=== PATIENT | female | born 1965 ===

== ENCOUNTER 2019-03-30 01:45 | Emergency (ER) | payer SELFPAY ==
[2019-03-30 02:33] LABS: Basophils # (Auto) 0.1 K/mm3 (0.0-0.1); Basophils % (Auto) 0.6 % (0.0-1.8); Eosinophils % (Auto) 0.2 % (0.0-4.3); Hematocrit 39.8 % (30.3-42.9); Hemoglobin 13.5 gm/dl (10.1-14.3); Lymphocytes # (Auto) 2.2 K/mm3 (1.2-5.4); Lymphocytes % (Auto) 20.1 % (13.4-35.0); Mean Corpuscular HGB Conc 34 % (30-34); Mean Corpuscular Volume 90 fl (79-97); Monocytes # (Auto) 0.9 K/mm3 (0.0-0.8); Monocytes % (Auto) 8.8 % (0.0-7.3); Platelet Count 168 K/mm3 (140-440); Red Blood Count 4.45 M/mm3 (3.65-5.03); Red Cell Distribution Width 14.2 % (13.2-15.2)
[2019-03-30 02:56] LABS: Albumin 3.5 g/dL (3.9-5); BUN/Creatinine Ratio 13; Blood Urea Nitrogen 9 mg/dL (7-17); Hemolysis Index 143
[2019-03-30 03:41] LABS: Alanine Aminotransferase 68 units/L (7-56)
[2019-03-30] MEDS ORDERED: NACL 0.9% 1000 ML 1,000 ML IV ONE (04:00)
[2019-03-30] MEDS ORDERED: TORADOL IV ONE (04:00)
[2019-03-30] MEDS ORDERED: ZOFRAN IV ONE (04:00)
[2019-03-30] MEDS ORDERED: NORCO 5/325 PO ONE (04:01)
[2019-03-30 05:01] LABS: Bacteria,Urine 4+ /HPF (Negative); Bilirubin,Urine NEG (Negative); Blood,Urine SM (Negative); Color,Urine Yellow (Yellow); Mucus,Urine FEW /HPF
[2019-03-30 05:06] LABS: WBC,Urine > 182.0 /HPF (0.0-6.0)
[2019-03-30] MEDS ORDERED: ROCEPHIN/NS 1 GM/50 ML 1 GM/50 ML BAG IV ONE (05:18)
--- NOTE | 2019-03-30 06:24 | Emergency Department Report ---
ED Abdominal Pain HPI - General Chief Complaint: Abdominal Pain Stated Complaint: FEVER/FLANK PAIN Source: patient, EMS Mode of arrival: Wheelchair Limitations: No Limitations - History of Present Illness Initial Comments: Patient is a 53 yo AA female with a h/o HTN who presents to the ED with c/o acute onset persistent severe left flank pain with dysuria, urinary urgency and frequency and low back pain with nausea x 3 days. Patient states that the symptoms became more worse in the last 12 hours with fever and chills, low appetite and worsening nausea. Patient denies dizziness, vaginal bleeding, vaginal discharge, chest pain, dyspnea, sore throat and headache or vision ch anges, and cough. MD Complaint: abdominal pain, flank pain (left flank pain), other (dysuria, urinary frequency and urgency; low back pain) -: Sudden, days(s) (4) Location: suprapubic, L flank Radiation: suprapubic, L flank Migration to: no migration Severity scale (0 -10): 5 Quality: aching, sharp Consistency: constant Improves With: nothing Worsens With: movement Associated Symptoms: denies other symptoms, nausea, dysuria, anorexia. denies: vomiting, diarrhea, fever, chills, constipation, hematemesis, hematochezia, melena, hematuria, syncope, other - Related Data LMP Date: 03/20/19 Previous Rx's Medication Instructions Recorded Last Taken Type Acetaminophen/Codeine [Tylenol 1 tab PO Q6H PRN #12 tab 03/30/19 Unknown Rx /Codeine # 3 tab] Ibuprofen [Motrin] 800 mg PO Q8HR PRN #24 tablet 03/30/19 Unknown Rx Ondansetron [Zofran Odt] 4 mg PO Q6HR PRN #15 tab.rapdis 03/30/19 Unknown Rx Sennosides/Docusate [Senokot S] 1 each PO QHS #30 tab 03/30/19 Unknown Rx levoFLOXacin [Levaquin TAB] 500 mg PO QDAY #10 tablet 03/30/19 Unknown Rx Allergies Allergy/AdvReac Type Severity Reaction Status Date / Time No Known Allergies Allergy Unverified 03/30/19 02:13 ED Review of Systems ROS: Stated complaint: FEVER/FLANK PAIN Other details as noted in HPI Constitutional: chills, fever, malaise Eyes: denies: eye pain, eye discharge, vision change ENT: denies: ear pain, throat pain Respiratory: denies: cough, shortness of breath, SOB with exertion, SOB at rest, wheezing Cardiovascular: denies: chest pain, palpitations Endocrine: no symptoms reported Gastrointestinal: abdominal pain (left flank), nausea. denies: diarrhea Genitourinary: urgency, dysuria, frequency. denies: discharge Musculoskeletal: back pain, arthralgia, myalgia. denies: joint swelling Skin: denies: rash, lesions Neurological: denies: headache, weakness, paresthesias Psychiatric: denies: anxiety, depression Hematological/Lymphatic: denies: easy bleeding, easy bruising ED Past Medical Hx - Past Medical History Previous Medical History?: Yes Hx Hypertension: Yes Hx Diabetes: Yes - Surgical History Past Surgical History?: No - Social History Smoking Status: Current Every Day Smoker - Medications Home Medications: Home Medications Medication Instructions Recorded Confirmed Last Taken Type Acetaminophen/Codeine [Tylenol 1 tab PO Q6H PRN #12 tab 03/30/19 Unknown Rx /Codeine # 3 tab] Ibuprofen [Motrin] 800 mg PO Q8HR PRN #24 tablet 03/30/19 Unknown Rx Ondansetron [Zofran Odt] 4 mg PO Q6HR PRN #15 tab.rapdis 03/30/19 Unknown Rx Sennosides/Docusate [Senokot S] 1 each PO QHS #30 tab 03/30/19 Unknown Rx levoFLOXacin [Levaquin TAB] 500 mg PO QDAY #10 tablet 03/30/19 Unknown Rx ED Physical Exam - General Limitations: No Limitations General appearance: alert, in no apparent distress - Head Head exam: Present: atraumatic, normocephalic, normal inspection - Eye Eye exam: Present: normal appearance, PERRL, EOMI Pupils: Present: normal accommodation - ENT ENT exam: Present: normal exam, normal orophraynx, mucous membranes moist, TM's normal bilaterally, normal external ear exam - Neck Neck exam: Present: normal inspection - Respiratory Respiratory exam: Present: normal lung sounds bilaterally. Absent: respiratory distress, wheezes, rales, rhonchi, chest wall tenderness, accessory muscle use, decreased breath sounds - Cardiovascular Cardiovascular Exam: Present: normal rhythm, tachycardia, normal heart sounds. Absent: systolic murmur, diastolic murmur, rubs, gallop - GI/Abdominal GI/Abdominal exam: Present: soft, tenderness (left flank tenderness; positive Left CVA tenderness), normal bowel sounds. Absent: distended, guarding, rebound, hyperactive bowel sounds, organomegaly - Extremities Exam Extremities exam: Present: normal inspection, full ROM, normal capillary refill - Back Exam Back exam: Present: normal inspection, full ROM, CVA tenderness (L). Absent: tenderness, muscle spasm, paraspinal tenderness - Neurological Exam Neurological exam: Present: alert, oriented X3, CN II-XII intact, normal gait, reflexes normal - Psychiatric Psychiatric exam: Present: normal affect, normal mood - Skin Skin exam: Present: warm, dry, intact, normal color. Absent: rash ED Course Vital Signs 03/30/19 03/30/19 03/30/19 01:56 05:06 05:07 Temperature 102.9 F H Pulse Rate 118 H Respiratory 18 16 16 Rate Blood Pressure 145/71 O2 Sat by Pulse 93 Oximetry 03/30/19 03/30/19 05:37 06:06 Temperature Pulse Rate Respiratory 16 16 Rate Blood Pressure O2 Sat by Pulse Oximetry - Reevaluation(s) Reevaluation #1: 03/30/19 06:34 This is a 53-year-old female who presented to the ED with component of acute onset persistence severe left flank pain, nausea, intermittent fever and chills, dysuria, urinary frequency and urgency and low back pain for the last 4 days. In the ED, patient is febrile, tachycardic, but in no acute distress. Patient was treated for pain and also given normal saline 1 L IV bolus and treated for fever. Lab test results were reviewed and showed AST of 43, ALT of 68 and alkaline phosphatase of 178, with urinalysis showing significant urinary tract infection characterized by elevated white blood cells and positive nitrites. Patient was treated for acute urinary tract infection with Rocephin 1 g IV and abdomen pelvis CT scan without contrast shows findings in the left kidney that are consistent with pyelonephritis. There is mild prominence of the renal collecting systems and ureters bilaterally, left more than right, but I do not see an obstructing abnormality. Urinary bladder shows no abnormalities and is not dilated. Chronicity of the mild prominence is unknown and is not necessarily acute. There is also cholelithiasis without acute change seen. On reevaluation, patient's fever resolved as well as tachycardia. Patient feeling better with treatment and was discharged home on antibiotics, pain medications, antiemetics and was advised to follow-up with her primary care physician in 5-7 days for reevaluation or return to the ED immediately if symptoms get worse. ED Medical Decision Making - Lab Data Result diagrams: 03/30/19 02:17 03/30/19 02:17 - Radiology Data Radiology results: report reviewed, image reviewed Findings [facility] [address] [place] [address] Cat Scan Report Signed Patient: KARLEE LONDON MR#: [id number] : 1965 Acct:[id number] Age/Sex: 53 / F ADM Date: 03/30/19 Loc: ED Attending Dr: Ordering Physician: GISELL MCGUIRE Date of Service: 03/30/19 Procedure(s): CT abdomen pelvis wo con Accession Number(s): [id number] cc: GISELL MCGUIRE CT ABDOMEN AND PELVIS WITHOUT CONTRAST INDICATION: Left flank pain: R/O Kidney stones, pyelonephritis CONTRAST: Without IV COMPARISON: None available. All CT scans at this location are performed using CT dose reduction for ALARA by means of automated exposure control. NOTE: Resolution is decreased and artifact is introduced by the patient's size. FINDINGS: Lung bases are clear. No pneumoperitoneum is seen. Mild fatty infiltration of the liver is seen. Liver is mildly enlarged and has a length of 19 cm. No focal lesions are seen. Spleen is not significantly enlarged. Small gallstones are seen without gallbladder wall thickening. No biliary dilatation is seen. No evidence of bowel obstruction is noted. Only a trace of free fluid is seen in the pelvis. No masses are seen. No urinary tract calculi are noted. The left kidney has an edematous appearance and there is mild edema in the pararenal fat on the left which is not seen on the right. The left renal collecting system and ureter show mild prominence but without an obvious obstructing lesio n. There is slight prominence to the right renal collecting system and ureter as well, again without an obvious obstructing point. IMPRESSION: 1. Findings in the left kidney are consistent with pyelonephritis. There is mild prominence of the renal collecting systems and ureters bilaterally, left more than right, but I do not see an obstructing abnormality. Urinary bladder shows no abnormalities and is not dilated. Chronicity of the mild prominence is unknown and is not necessarily acute. 2. Cholelithiasis without acute change seen Signer Name: Mars Velazquez MD Signed: 03/30/2019 6:24 AM Workstation Name: [id number] Transcribed By: GRETTA Dictated By: Mars Velazquez MD Electronically Authenticated By: Mars Velazquez MD Signed Date/Time: 03/30/19 0624 - Medical Decision Making This is a 53-year-old female who presented to the ED with component of acute onset persistence severe left flank pain, nausea, intermittent fever and chills, dysuria, urinary frequency and urgency and low back pain for the last 4 days. In the ED, patient is febrile, tachycardic, but in no acute distress. Patient was treated for pain and also given normal saline 1 L IV bolus and treated for fever. Lab test results were reviewed and showed AST of 43, ALT of 68 and a lkaline phosphatase of 178, with urinalysis showing significant urinary tract infection characterized by elevated white blood cells and positive nitrites. Patient was treated for acute urinary tract infection with Rocephin 1 g IV and abdomen pelvis CT scan without contrast shows findings in the left kidney that are consistent with pyelonephritis. There is mild prominence of the renal collecting systems and ureters bilaterally, left more than right, but I do not see an obstructing abnormality. Urinary bladder shows no abnormalities and is not dilated. Chronicity of the mild prominence is unknown and is not necessarily acute. There is also cholelithiasis without acute change seen. On reeval uation, patient's fever resolved as well as tachycardia. Patient feeling better with treatment and was discharged home on antibiotics, pain medications, antiemetics and was advised to follow-up with her primary care physician in 5-7 days for reevaluation or return to the ED immediately if symptoms get worse. - Differential Diagnosis Acute pyelonephritis; Acute UTI; Kidney stones; Flank pain; Colitis Critical care attestation.: If time is entered above; I have spent that time in minutes in the direct care of this critically ill patient, excluding procedure time. ED Disposition Clinical Impression: Fever and chills, Acute abdominal pain in left flank, Acute urinary tract infection, Acute pyelonephritis Disposition: DC- TO HOME OR SELFCARE Is pt being admited?: No Does the pt Need Aspirin: No Condition: Stable Instructions: Urinary Tract Infection in Women (ED), Fever in Adults (ED), Abdominal Pain (ED), Flank Pain (ED) Additional Instructions: Take medications with food, drink plenty of fluids and follow-up with your primary care physician in 5-7 days for reevaluation. Return to the emergency department immediately for further evaluation if her symptoms get worse. Prescriptions: Sennosides/Docusate [Senokot S] 1 each PO QHS #30 tab levoFLOXacin [Levaquin TAB] 500 mg PO QDAY #10 tablet Ibuprofen [Motrin] 800 mg PO Q8HR PRN #24 tablet PRN Reason: Pain , Severe (7-10) Acetaminophen/Codeine [Tylenol /Codeine # 3 tab] 1 tab PO Q6H PRN #12 tab PRN Reason: Pain , Severe (7-10) Ondansetron [Zofran Odt] 4 mg PO Q6HR PRN #15 tab.rapdis PRN Reason: Nausea Referrals: DR YONATHAN [Other] - 3-5 Days Time of Disposition: 06:34 Print Language: BURKINAN
--- NOTE | 2019-03-30 06:29 | Cat Scan Report ---
CT ABDOMEN AND PELVIS WITHOUT CONTRAST INDICATION: Left flank pain: R/O Kidney stones, pyelonephritis CONTRAST: Without IV COMPARISON: None available. All CT scans at this location are performed using CT dose reduction for ALARA by means of automated e xposure control. NOTE: Resolution is decreased and artifact is introduced by the patient's size. FINDINGS: Lung bases are clear. No pneumoperitoneum is seen. Mild fatty infiltration of the liver is seen. Liver is mildly enlarged and has a length of 19 cm. No focal lesions are seen. Spleen is not si gnificantly enlarged. Small gallstones are seen without gallbladder wall thickening. No biliary dilat ation is seen. No evidence of bowel obstruction is noted. Only a trace of free fluid is seen in the p sabino. No masses are seen. No urinary tract calculi are noted. The left kidney has an edematous appearance and there is mild rosa ma in the pararenal fat on the left which is not seen on the right. The left renal collecting system and ureter show mild prominence but without an obvious obstructing lesion. There is slight prominence to the right renal collecting system and ureter as well, again without an obvious obstructing point. IMPRESSION: 1. Findings in the left kidney are consistent with pyelonephritis. There is mild prominence of the re nal collecting systems and ureters bilaterally, left more than right, but I do not see an obstructing abnormality. Urinary bladder shows no abnormalities and is not dilated. Chronicity of the mild promi nence is unknown and is not necessarily acute. 2. Cholelithiasis without acute change seen Signer Name: Mars Velazquez MD Signed: 03/30/2019 6:24 AM Workstation Name: [id number]
[2019-03-30 06:56] VITALS: BP 129/68
== END 2019-03-30 07:30 | disposition home or self-care (01) ==
LOC: ED 01:45
DX: N10 Acute pyelonephritis (principal); N39.0 Urinary tract infection, site not specified; I10 Essential (primary) hypertension; E11.9 Type 2 diabetes mellitus without complications; F17.200 Nicotine dependence, unspecified, uncomplicated; Z79.899 Other long term (current) drug therapy
CPT/HCPCS: 36415; 74176; 80053; 81001; 84703; 85025; 96365; 96375; 99284; J0696; J1885; J2405; J7030; 96361